=== PATIENT | male | born 1980 | race Two or more races ===

== ENCOUNTER 2017-01-30 14:38 | Emergency (ER) | payer OTHER ==
[~2017-01-30] VITALS: Ht 170.2 cm; Wt 84.2 kg
[2017-01-30 14:44] VITALS: BP 146/74
== END 2017-01-30 16:46 | disposition home or self-care (01) ==
LOC: ED 15:48
DX: S83.91XA Sprain of unspecified site of right knee, initial encounter (principal); W22.09XA Striking against other stationary object, initial encounter; Y93.89 Activity, other specified; Y92.89 Other specified places as the place of occurrence of the external cause; Y99.8 Other external cause status
CPT/HCPCS: 29505